=== PATIENT | male | born 1970 | race Caucasian/White ===

== ENCOUNTER 2019-03-03 00:50 | Emergency (ER) | payer SELFPAY ==
[~2019-03-03] VITALS: Ht 167.6 cm; Wt 90.7 kg
[2019-03-03 01:00] VITALS: BP_SYST 135
[2019-03-03] MEDS ORDERED: THIAMINE HCL IV ONE (01:00)
[2019-03-03] MEDS ORDERED: FOLIC ACID IV ONE (01:00)
[2019-03-03] MEDS ORDERED: NACL 0.9% IV ONE (01:00)
[2019-03-03] MEDS ORDERED: KETOROLAC TROMETHAMINE 30 MG VIAL IVP ONE (01:15)
[2019-03-03] MEDS ORDERED: PANTOPRAZOLE SODIUM 40 MG/VIAL (PROTONIX) IVP ONE (01:15)
[2019-03-03] MEDS ORDERED: THIAMINE HCL 100 MG/ML VIAL ONE (01:24)
[2019-03-03] MEDS ORDERED: FOLIC ACID 5 MG/ML VIAL IV ONE (01:24)
[2019-03-03 01:32] LABS: BASOPHILS % (AUTO) 0.4 % (0.0-2.0); EOSINOPHILS # (AUTO) 0.1 K/uL (0.0-0.4); EOSINOPHILS % (AUTO) 1.2 % (0.0-4.0); HEMATOCRIT 50.4 % (36-54); HEMOGLOBIN 17.5 g/dL (14.0-18.0); LYMPHOCYTES # (AUTO) 2.4 K/uL (1.0-5.5); LYMPHOCYTES % (AUTO) 37.6 % (20.5-51.5); MEAN CORPUSCULAR HEMOGLOBIN 32 pg (27-31); MEAN CORPUSCULAR HGB CONC 35 % (32-36); MEAN CORPUSCULAR VOLUME 91 fL (79.0-98.0); MONOCYTES # (AUTO) 0.5 K/uL (0.0-1.0); MONOCYTES % (AUTO) 7.6 % (1.7-9.3); NEUTROPHILS # (AUTO) 3.4 K/uL (1.8-7.7); NEUTROPHILS % (AUTO) 53.2 % (40.0-70.0); PLATELET COUNT (AUTO) 214 K/uL (130-430); RED BLOOD CELL COUNT(AUTO) 5.52 MIL/uL (4.2-6.2); RED CELL DISTRIBUTION WIDTH 13.2 % (9.0-15.0); WHITE BLOOD COUNT (AUTO) 6.4 K/uL (4.8-10.8)
[2019-03-03 01:44] LABS: ANION GAP 11 (5-15); CALCIUM 9.2 mg/dL (8.4-11.0); CHLORIDE 97 mmol/L (98-107); CREATININE 0.87 mg/dL (0.55-1.30); GLUCOSE 133 mg/dL (70-99); POTASSIUM 3.2 mmol/L (3.5-5.1); SODIUM SERUM 140 mmol/L (136-145); UREA NITROGEN, BLOOD 6 mg/dL (8-21)
[2019-03-03 01:50] LABS: GFR AFRICAN AMERICAN 121 mL/min (>90)
[2019-03-03 01:51] LABS: ACETAMINOPHEN < 1 ug/mL (1-30); ALANINE AMINOTRANSFERASE 61 U/L (12-78); ALBUMIN 3.8 g/dL (3.4-4.8); ALCOHOL, BLOOD 276 mg/dL (<10); ASPARTATE AMINOTRANSFERASE 57 U/L (10-37); LIPASE 299 U/L (73-393); TOTAL BILIRUBIN 0.5 mg/dL (0.0-1.0)
[2019-03-03] MEDS ORDERED: MORPHINE 4 MG/ML INJ. SYRINGE IVP ONE (03:30)
[2019-03-03 06:22] VITALS: BP_SYST 134
== END 2019-03-03 06:22 | disposition home or self-care (01) ==
LOC: SED 00:50
DX: F10.129 Alcohol abuse with intoxication, unspecified (principal); R03.0 Elevated blood-pressure reading, without diagnosis of hypertension; Y90.8 Blood alcohol level of 240 mg/100 ml or more
CPT/HCPCS: 36415; 80053; 83690; 85025; 93005; 96365; 96366; 96375; 99284; C9113; G0480; G0481; G0482; J1885; J2270; J3411; J3490